=== PATIENT | male | born 1960 | race Caucasian/White ===

== ENCOUNTER 2018-07-17 14:07 | Outpatient (CLI) | payer OTHER ==
[~2018-07-17] VITALS: Ht 165.1 cm; Wt 82.6 kg
[2018-07-17 14:16] VITALS: BP 138/85
[2018-07-17] MEDS ORDERED: TOPIRAMATE25 MG ORAL (14:46)
[2018-07-17] MEDS ORDERED: PLAVIX75 MG ORAL (14:46)
[2018-07-17] MEDS ORDERED: ATORVASTATIN CA10 MG ORAL (14:56)
--- NOTE | 2018-07-17 16:06 | GI Initial Consult Note ---
History of Present Illness General Date patient seen: Jul 17, 2018 Time patient seen: 16:04 Referring physician: O Reason for Consultation: SCREENING COLONOSCOPY Present Illness HPI 58 year old male patient to presents today for colonoscopy screening. Patient denies any current GI symptoms; denies abdominal pain, N/V/D or constipation. He denies any significant medical history other than HLD. No surgical history. Denies any unintentional weight loss or changes in dietary habits. No signs of abuse or neglect. Patient is not fall risk. No history of endoscopy nor colonoscopy. Home Meds Reported Medications Atorvastatin Calcium* (LIPITOR*) 10 Mg Tablet, ORAL BEDTIME, TAB 07/17/18 Med list reviewed/reconciled: Yes Allergies: Coded Allergies: No Known Allergies (Unverified , 07/17/18) Patient History History Provided By: Patient PMH Narrative HLD Past Surgical History: none Pertinent Family History: none Social History: Denies: smoking, alcohol use, drug use, other Review of Systems All Other Systems: negative except mentioned in HPI Physical Exam Vital Signs Date Time Temp Pulse Resp B/P (MAP) Pulse Ox O2 Delivery O2 Flow Rate FiO2 07/17/18 14:16 98.8 61 16 138/85 92 Sp02 EP Interpretation: reviewed, normal General Appearance: well appearing, no apparent distress, alert Head: normocephalic EENT: PERRL/EOMI, normal ENT inspection Neck: supple Respiratory: normal breath sounds, no respiratory distress Cardiovascular: normal rate Gastrointestinal: normal inspection, non tender, soft, normal bowel sounds, non -distended Rectal: deferred Genitourinary: deferred Musculoskeletal: normal inspection, back normal Neurologic: normal inspection, alert, oriented x3, responsive Psychiatric: normal inspection, judgement/insight normal, memory normal Skin: normal inspection, normal color, no rash, warm/dry, palpation normal, well hydrated Lymphatic: normal inspection, no adenopathy GI: Plan Problems: (1) HLD (hyperlipidemia) (2) Colonoscopy planned Plan Colonoscopy to be scheduled pending PA, will contact patient. - CLD & (Nulytely/Suprep/Movi-Prep) prep instructions given and acknowledged by patient. - NPO @ NE day prior procedure explained. Will follow with additional recs post procedure. Seen with Dr. Perea. Thank you for this patient referral. The patient was seen and examined at bedside and all new and available data was reviewed in the patients chart. I agree with the above findings, impression and plan. (Patient seen earlier today. Signature stamp does not reflect patient encounter time.). - MD [facility] Jul 17, 2018 16:06
== END 2018-07-17 14:37 | disposition home or self-care (01) ==
LOC: PAN 14:07 → EDBD 14:07 → PAN 14:37
DX: Z12.11 Encounter for screening for malignant neoplasm of colon (principal); E78.5 Hyperlipidemia, unspecified
CPT/HCPCS: 99202

== ENCOUNTER 2018-10-26 13:07 | Outpatient (CLI) | payer OTHER ==
[~2018-10-26 13:07] MED LIST: ATORVASTATIN CA10 MG ORAL; PLAVIX75 MG ORAL; TOPIRAMATE25 MG ORAL
[2018-10-26 13:17] VITALS: BP_SYST 131; BP_SYST 135; BP_DIAS 72; BP_DIAS 87
--- NOTE | 2018-10-26 13:55 | General Progress Note ---
Assessment/Plan Problem List: (1) Colon polyps ICD Codes: K63.5 - Polyp of colon SNOMED: [id number] Assessment/Plan repeat colonoscopy in 5 years Subjective ROS Limited/Unobtainable: Yes Allergies: Coded Allergies: No Known Allergies (Unverified , 07/17/18) Objective Last 24 Hour Vital Signs Date Time Temp Pulse Resp B/P (MAP) Pulse Ox O2 Delivery O2 Flow Rate FiO2 10/26/18 13:17 97.6 69 16 135/87 98 General Appearance: alert EENT: normal ENT inspection Neck: supple Cardiovascular: normal rate Respiratory/Chest: lungs clear Abdomen: normal bowel sounds, non tender, soft Extremities: non-tender Odell Perea MD Oct 26, 2018 13:55
== END 2018-10-26 15:07 | disposition home or self-care (01) ==
LOC: PAN 13:07
DX: K63.5 Polyp of colon (principal)
CPT/HCPCS: G0463